=== PATIENT | female | born 1960 | race Caucasian/White ===

== ENCOUNTER 2016-08-14 11:17 | Outpatient (CLI) | payer OTHER | END 2016-08-14 23:00 | disposition home or self-care (01) | LOC: LAB SRH 11:17 | DX: Z13.220 Encounter for screening for lipoid disorders (principal); F90.0 Attention-deficit hyperactivity disorder, predominantly inattentive type; E55.9 Vitamin D deficiency, unspecified | CPT/HCPCS: 90074; 90100; 91096; 92690 ==